=== PATIENT | male | born 1985 | race Caucasian/White ===

== ENCOUNTER → 2019-04-19 12:04 | Outpatient (CLI) | payer SELFPAY ==
[2019-04-19 15:07] LABS: Creatinine,Serum 1.17 mg/dL (0.70-1.30); Estimated Glomerular Filt Rate 73 ml/min (>60); GFR (African American) 88 ML/MIN (>60)
[2019-04-20 10:36] LABS: Lithium (Eskalith(R)) 0.5 mmol/L (0.6-1.2)
== END ==
PROVIDERS: Visit Provider Psychiatry & Neurology Psychiatry
DX: F31.12 Bipolar disorder, current episode manic without psychotic features, moderate (principal)
CPT/HCPCS: 36415; 80178; 82565; 84443

== ENCOUNTER 2020-01-01 22:44 | Emergency (ER) | payer BC, SELFPAY ==
[2020-01-01 22:45] VITALS: BP 160/94; PULSE 94; RESP 16; TEMP 36.9; O2SAT 98; BMI 35.2
--- NOTE | 2020-01-01 23:07 | HMH.EDGENADL ---
ED Disposition Clinical Impression: Strain of lumbar region Qualifiers: Encounter type: initial encounter Qualified Code(s): S39.012A - Strain of muscle, fascia and tendon of lower back, initial encounter Disposition: Home, Self-Care Condition on Discharge: Good Instructions: DI for Low Back Pain Prescriptions: Cyclobenzaprine HCl [Flexeril 10mg tablet] 10 mg PO Q8HP PRN 5 Days #15 tab PRN Reason: Muscle Spasm Transmission Status: Received by [facility] # [id number] Referrals: PCP,No [Primary Care Provider] - - Critical Care Critical Care Time: No Attestation: On 01/01/20, the high probability of a clinically significant, sudden or life threatening deterioration of the following system(s) required my full and direct attention, intervention and personal management. The time I documented below is in addition to time spent performing reported procedures but includes the following listed in this critical care notation. Medical Decision Making - Erlin Inquiry Pt receiving controlled substance: No Vital Signs: 01/01/20 22:45 Temperature 98.4 F Temperature Source Oral Pulse Rate [Left Radial] 94 H Respiratory Rate 16 Blood Pressure [Right Arm] 160/94 H Blood Pressure Mean [Right Arm] 116 Blood Pressure Source [Right Arm] Automatic Cuff Blood Pressure Position [Right Arm] Sitting 02 Sat by Pulse Oximetry 98 Oxygen Delivery Method Room Air Orders (Tests/Meds): ED MEDICATIONS Discontinued Medications Generic Name Dose Route Start Last Admin Trade Name Freq PRN Reason Stop Dose Admin Acetaminophen 1,000 mg 01/01/20 23:06 01/01/20 23:29 Tylenol 500mg Tablet PO 01/01/20 23:07 1,000 mg ONCE ONE Administration Cyclobenzaprine HCl 5 mg 01/01/20 23:06 01/01/20 23:29 Flexeril 10mg Tablet PO 01/01/20 23:07 5 mg ONCE ONE Administration Ibuprofen 400 mg 01/01/20 23:06 01/01/20 23:29 Motrin 400mg Tablet PO 01/01/20 23:07 400 mg ONCE ONE Administration Medical Decision Narrative: at present time, the precise etiology of the patient's current symptom complex is unclear. The patient is awake, alert, he is hemodynamically stable without signs of toxicity. Given history and physical exam findings, I doubt acute [employer] RN catastrophe (including but not limited to mass, infection, infarction, or hemorrhage) secondary to the time course, the patient's well appearance, their essentially normal vital signs, and the nonfocal nature of the patient's neurovascular examination. Additionally, the patient has no red flag- type symptoms (such as urinary/fecal incontinence/difficulty or saddle anesthesia) that would suggest these Cauda Equina, Spinal epidural abscess, or these types of pathologies. Normal rectal exam, post void residual 40ml consistent with low risk for spinal cord compression. I doubt acute intrathoracic or intra-abdominal catastrophe such as aortic dissection or abdominal aortic aneurysm secondary to the previously-mentioned factors as well as the patient's nonfocal neurovascular examination. Similarly, I doubt tract pathology (i.e., nephrolithiasis or ureterolithiasis, renal colic, etc) secondary to the fact that I feel that a musculoskeletal-type etiology is more likely given the patient's characteristic history/physical examination findings. However, the remote but distinct possibility of occult pathology was explained in detail to the patient, who verbalized excellent understanding. All the patient's questions were answered to their satisfaction and they verbalized excellent understanding of the possible diagnoses/need for close follow up. General Adult HPI - General Chief complaint: Back Pain/Injury Stated complaint: back out Time Seen by Provider: 01/01/20 23:00 Mode of Arrival: Family Vehicle Source of Information: Patient, Spouse Limitations: No Limitations - History of Present Illness HPI narrative: 34-year-old male history of back pain, right lower extremity fractures
--- NOTE | 2020-01-01 23:55 | PC.NURSE ---
pt requested crutched to help him get around better
[2020-01-02 00:10] VITALS: BP 152/83; PULSE 87; RESP 16; TEMP 36.8; O2SAT 99
== END 2020-01-02 00:14 | disposition home or self-care (01) ==
PROVIDERS: Emergency Provider Emergency Medicine
DX: S39.012A Strain of muscle, fascia and tendon of lower back, initial encounter (principal); X50.0XXA Overexertion from strenuous movement or load, initial encounter; Y92.018 Other place in single-family (private) house as the place of occurrence of the external cause
CPT/HCPCS: 99281